=== PATIENT | male | born 1960 | race Caucasian/White ===

== ENCOUNTER 2017-05-19 09:25 | Outpatient (RCR) | payer BC ==
[~2017-05-19 09:25] MED LIST: ASPI81TA94 PO
[2017-05-19 09:29] VITALS: BP 123/80
--- NOTE | 2017-05-19 18:59 | ONCOLOGY FOLLOW UP NOTE ---
EVENT DATE: May 19, 2017 DIAGNOSES 1. Secondary erythrocytosis. 2. Tobacco abuse. CHIEF COMPLAINT The patient is here today for followup of his polycythemia. HEMATOLOGY HISTORY The patient is a 55-year-old male smoker who was treated with phlebotomies in the past for high hematocrit by his primary care provider. In December 2015, his hematocrit was 59% and phlebotomy was done. In January 2016, hematocrit was 59% and again phlebotomy was done. In February 2016 his hematocrit was 57% and hematocrit was also done. In April of 2016, his hematocrit was 64.9%, patient missed phlebotomy in March, and phlebotomy was done at that time. He smoked one pack a day for nearly thirty years since the age of [age]. He is taking a half tablet of baby aspirin 81 mg daily currently. He denies any constitutional symptoms. JAK2 mutation analysis came back negative for [id number] mutation and Exon 12 mutation. Erythropoietin level was normal at 18, consistent with secondary erythrocytosis. HISTORY OF PRESENT ILLNESS The patient is here today for followup of his erythrocytosis. He is doing fine currently. He is trying to decrease his smoking. He has pain in his hips and knees. PAST MEDICAL HISTORY Polycythemia. PAST SURGICAL HISTORY Appendectomy. SOCIAL HISTORY The patient is with one biological child. He works in construction. He smoked about one pack a day for thirty years. He drinks nearly on a daily basis, usually whiskey. Denies any abuse of illicit drugs. FAMILY HISTORY Father with colon cancer. CURRENT MEDICATIONS 1. Aspirin 81 mg half tablet daily. 2. Vitamin D. ALLERGIES No known drug allergies. REVIEW OF SYSTEMS CONSTITUTIONAL: No appetite or weight change. No fever, chills or sweating. No recent infection. HEENT: Ears: No tinnitus or hearing problem. Nose: No nasal discharge or epistaxis. Throat: No sore throat or mouth ulcers. Eyes: No diplopia or visual changes. RESPIRATORY: The patient has some cough from smoking. CARDIOVASCULAR: No chest pain, orthopnea, or paroxysmal nocturnal dyspnea (PND) . No edema. No palpitations. GASTROINTESTINAL: No nausea or vomiting. No diarrhea or constipation. No change in bowel movements. No heartburn or swallowing difficulties. No abdominal pain. No jaundice. No hematemesis, melena or rectal bleeding. GENITOURINARY: No hematuria or dysuria. MUSCULOSKELETAL: He has pain in the hips and knees sometimes. NEUROLOGICAL: No tingling or numbness in the hands or feet. No headaches or convulsions. HEMATOLOGIC/LYMPHATIC: He is weak, tired and fatigued. No enlarged lymph nodes. SKIN: No skin rash or lumps. PSYCHIATRIC: No anxiety or depression. PHYSICAL EXAMINATION GENERAL: Looks stable. Well-developed, well-nourished, and in no acute distress. VITAL SIGNS: Blood pressure 123/80, pulse 85 per minute, respirations 16 per minute, temperature 98.4, pulse ox 86% on room air. HEENT: Head: Atraumatic. No sinus tenderness to palpation. Eyes: No icterus or conjunctivitis. Mouth and throat: No oral thrush or mucositis. NECK: Supple. No cervical or supraclavicular lymphadenopathy. LUNGS: Clear to auscultation and percussion bilaterally. HEART: Regular rate and rhythm. No gallops, murmurs, clicks or rubs. ABDOMEN: Soft and lax. No tenderness. No hepatosplenomegaly. No masses. EXTREMITIES: No cyanosis, clubbing or edema. LYMPHATICS: No peripheral lymphadenopathy. NEUROLOGICAL: Conscious, alert and oriented times three. No focal motor or sensory deficits. PSYCHIATRIC: Mood and affect appear normal. SKIN: No skin rash, bruise or purpuric eruption. DIAGNOSTIC DATA CBC showed white count 5.5, hemoglobin 16.1, hematocrit 51.7, platelets 268,000. ASSESSMENT 1. 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 JAK2 mutation analysis for V617F mutation and Exon 12 mutation came back negative and erythropoietin level was normal at 18. The patient currently receiving phlebotomy sessions nearly every six days. His current hematocrit is 51.7%, and the patient received phlebotomy two days ago. I am planning to repeat his CBC every three weeks now, and I will see him in three months with CBC at that time, and I will phlebotomize 500 mL of blood whenever his hematocrit is above 50%. Patient is doing very well currently without any specific complaints, except for pain in the hips and knees sometimes. 2. Tobacco abuse. The patient is trying to decrease his smoking habit. PLAN 1. Phlebotomize 500 mL of blood whenever his hematocrit is above 50%. 2. CBC to be checked every three weeks. 3. The patient is to return in three months with CBC. 4. The patient to contact us for any new concerns or complaints. MICHAEL
== END 2017-08-16 ==
LOC: ONC 09:25
PROVIDERS: ATTEND Internal Medicine Hematology
DX: D75.1 Secondary polycythemia (principal); F17.210 Nicotine dependence, cigarettes, uncomplicated; R05 Cough; R53.1 Weakness; R53.83 Other fatigue
CPT/HCPCS: 99212